=== PATIENT | male | born 1950 | race Hispanic/Latino ===

== ENCOUNTER → 2021-03-03 | Outpatient (CLI) | payer OTHER, MEDICARE ==
[~2021-03-03] MED LIST: ASPI-556 PO; ATOR40TA71 PO; BENA5TAB40 PO; GLIP5TAB11 PO; METF-446 PO; TIOT18CA3 IH
== END | disposition home or self-care (01) ==
LOC: SHCH 11:01
PROVIDERS: ATTEND Internal Medicine Cardiovascular Disease
DX: I11.0 Hypertensive heart disease with heart failure (principal); I50.22 Chronic systolic (congestive) heart failure; I08.3 Combined rheumatic disorders of mitral, aortic and tricuspid valves; E11.9 Type 2 diabetes mellitus without complications; E78.5 Hyperlipidemia, unspecified
CPT/HCPCS: 93306

== ENCOUNTER → 2024-10-09 | Outpatient (CLI) | payer OTHER, MEDICAID ==
[~2024-10-09] MED LIST changes: -GLIP5TAB11 PO; +GLIP5TAB15 PO
--- NOTE | 2024-10-10 06:29 | HMCIMG ---
EXAMINATION: ULTRASOUND SCREENING OF THE ABDOMINAL AORTA WITH COLOR DOPPLER. CLINICAL HISTORY: Nicotine dependence. COMPARISON: No prior studies. TECHNIQUE: Real-time grayscale ultrasound images of the aorta. In addition, color Doppler is medically necessary to perform in order to evaluate vascularity and blood flow. FINDINGS: The mid and distal aspects of the abdominal aorta are normal in caliber measuring 2.1 x 1.3 x 1.5 cm and 1.4 x 1.5 x 1.7 cm in the craniocaudal, AP, and transverse dimensions respectively. There is no evidence of plaques in the aorta. The proximal aorta is obscured by overlying bowel gas. The velocity in the distal aorta is 81 cm/s. The right common iliac artery is normal in caliber measuring 1.4 x 1.1 x 1.3 cm. The left common iliac artery is normal in caliber measuring 0.9 x 0.9 x 1.4 cm. IMPRESSION: Mild intimal thickening in the abdominal aorta. No aneurysm. /[place]
== END | disposition home or self-care (01) ==
LOC: RAH 07:46
PROVIDERS: ATTEND Internal Medicine
DX: I70.0 Atherosclerosis of aorta (principal); F17.200 Nicotine dependence, unspecified, uncomplicated
CPT/HCPCS: 76775